=== PATIENT | female | born 1970 | race Hispanic/Latino ===

== ENCOUNTER 2021-01-21 09:41 | Outpatient (CLI) | payer OTHER | END 2021-01-21 09:42 | disposition home or self-care (01) | LOC: BICRAD 09:41 | PROVIDERS: ATTEND Family Medicine | DX: M25.532 Pain in left wrist (principal) ==

== ENCOUNTER 2023-11-16 08:54 | Outpatient (CLI) | payer OTHER | END 2023-11-16 08:55 | disposition home or self-care (01) | LOC: BICRAD 08:54 | PROVIDERS: ATTEND Nurse Practitioner Family | DX: M89.8X1 Other specified disorders of bone, shoulder (principal) ==